=== PATIENT | female | born 1940 | race Caucasian/White ===

== ENCOUNTER 2017-07-29 16:39 | Emergency (ER) | payer BC ==
--- NOTE | 2017-07-29 16:49 | Emergency Department Record ---
History of Present Illness - General Chief Complaint: Chest Pain Stated Complaint: CHEST PAIN Time Seen by Provider: 07/29/17 16:48 Source: Patient Mode of Arrival: Ambulatory Limitations: No limitations - History of Present Illness Initial Comments: 76 yo female presents to ED for evaluation of "sharp" chest pain that began 3-4 days ago, denies any activity that worsens or improves her symptoms. Patient denies history of heart or lung problems, denies history of DVT, and denies fevers, chills, or recent illness. Patient reports a dull ache associated with her symptoms as well. Patient reports previous stress testing was 3-4 years ago. MD Complaint: Chest pain Onset/Timin -: Days(s) Pain Location: Left chest, Right chest Pain Radiation: Back Severity: Moderate Quality: Sharp Consistency: Intermittent Improves With: Nothing Worsens With: Nothing Treatments Prior to Arrival: None - Related Data On Oral Contraceptives: No Home Medications Medication Instructions Recorded Confirmed Last Taken Alprazolam [Xanax] 0.5 mg PO ASDIR 07/29/17 07/29/17 Unknown Aspirin [Aspir-Low] 81 mg PO DAILY 07/29/17 07/29/17 07/29/17 Atorvastatin Calcium [Lipitor] 10 mg PO QHS 07/29/17 07/29/17 07/28/17 Ibandronate Sodium [Boniva] 150 mg PO MONTHLY 07/29/17 07/29/17 Unknown Losartan Potassium [Cozaar] 50 mg PO DAILY 07/29/17 07/29/17 07/29/17 Pramipexole Di-HCl [Mirapex] 0.125 mg PO QHS 07/29/17 07/29/17 07/28/17 Propranolol HCl 80 mg PO DAILY 07/29/17 07/29/17 07/29/17 Topiramate [Topamax] 100 mg PO BID 07/29/17 07/29/17 07/29/17 Venlafaxine HCl [Venlafaxine HCl 37.5 mg PO QHS 07/29/17 07/29/17 07/28/17 ER] Allergies Allergy/AdvReac Type Severity Reaction Status Date / Time No Known Drug Allergies Allergy Verified 07/29/17 16:51 Review of Systems Constitutional: Denies: Chills, Fever, Malaise, Night sweats Eyes: Denies: Eye discharge, Eye pain ENT: Denies: Congestion, Ear pain, Epistaxis Respiratory: Denies: Cough, Dyspnea Cardiovascular: Reports: Chest pain. Denies: Dyspnea on exertion Endocrine: Denies: Fatigue, Heat or cold intolerance Gastrointestinal: Denies: Abdominal pain, Nausea, Vomiting Genitourinary: Denies: Incontinence, Retention Musculoskeletal: Denies: Arthralgia, Back pain, Gout, Joint swelling Skin: Denies: Bruising, Change in color Neurological: Denies: Abnormal gait, Confusion, Headache, Seizure Psychiatric: Denies: Anxiety Hematological/Lymphatic: Denies: Anemia, Blood Clots Past Medical History - SOCIAL HISTORY Smoking Status: Never smoker - RESPIRATORY Hx Respiratory Disorders: No - CARDIOVASCULAR Hx Cardio Disorders: Yes Hx Hypertension: Yes - NEURO Hx Neuro Disorders: Yes Hx Headaches: Yes - GI Hx GI Disorders: No - Hx Genitourinary Disorders: No - ENDOCRINE Hx Endocrine Disorders: No - MUSCULOSKELETAL Hx Musculoskeletal Disorders: Yes Hx Arthritis: Yes (hands) - PSYCH Hx Psych Problems: No - HEMATOLOGY/ONCOLOGY Hx Hematology/Oncology Disorders: Yes Hx Cancer: Yes (Left Breast) Hx Chemotherapy: Yes Hx Radiation Therapy: No Family Medical History Hx Cancer: Brother/Sister Physical Exam - General General Appearance: Alert, Oriented x3, Cooperative, No acute distress Limitations: No limitations - Head Head exam: Atraumatic, Normocephalic, Normal inspection Head exam detail: negative: Abrasion, Contusion, Sloan's sign, General tenderness, Hematoma, Laceration - Eye Eye exam: Normal appearance. negative: Conjunctival injection, Periorbital swelling, Periorbital tenderness, Scleral icterus - ENT Ear exam: negative: Auricular hematoma, Auricular trauma Nasal Exam: negative: Active bleeding, Discharge, Dried blood, Foreign body Mouth exam: negative: Drooling, Laceration, Tongue elevation - Neck Neck exam: Normal inspection. negative: Meningismus, Tenderness - Respiratory Respiratory exam: Normal lung sounds bilaterally. negative: Rales, Respiratory distress, Rhonchi, Stridor - Cardiovascular Cardiovascular Exam: Regular rate, Normal rhythm, Normal heart sounds - GI/Abdominal GI/Abdominal exam: Soft. negative: Rebound, Rigid, Tenderness - Rectal Rectal exam: Deferred - exam: Deferred - Extremities Extremities exam: Normal inspection. negative: Calf tenderness, Pedal edema, Tenderness - Back Back exam: Denies: CVA tenderness (R), CVA tenderness (L) - Neurological Neurological exam: Alert, Normal gait, Oriented X3 - Psychiatric Psychiatric exam: Normal affect, Normal mood - Skin Skin exam: Normal color. negative: Abrasion Type of lesion: negative: abrasion Course - Reevaluation(s) Reevaluation #1: 07/29/17 16:48 EKG: NSR 59 Normal axis, normal intervals No acute ST-T wave changes No significant change from 02/26/15 Reevaluation #2: 07/29/17 18:34 CXR: Chronic changes, hyperinflation, nothing acute Labs reviewed and are grossly unremarkable for an acute process. Case was discussed with Dr. Briseno, will accept transfer at this time. Patient was updated on all results, and appears stable for transfer at this time. Medical Decision Making - Lab Data Result diagrams: 07/29/17 16:50 07/29/17 16:50 Disposition Disposition: Transfer Clinical Impression: Chest pain Qualifiers: Chest pain type: unspecified Qualified Code(s): R07.9 - Chest pain, unspecified Disposition: Acute Care Hospital Transfer Transfer To: [facility] Reason For Transfer: Cardiac evaluation Accepting Physician: Finn Time Discussed w/Accepting Physician: 18:38 Condition: (2) Stable Forms: Patient Portal Access Time of Disposition: 18:38 Quality - Quality Measures Quality Measures: N/A - Blood Pressure Screening Does Patient Have Any of the Following: Active Dx of HTN Blood Pressure Classification: Hypertensive Reading Systolic Measurement: 174 Diastolic Measurement: 75 Screening for High Blood Pressure: Patient Exclusion, Hx of HTN [G9744]
[2017-07-29] MEDS ORDERED: ASPIRIN 81 MG CHEWABLE TABLET PO ONE (16:57)
[2017-07-29 17:10] LABS: BASO % 0.2 % (0-6); EOS % 2.1 % (0-6); GRAN % 47.3 % (47-80); HEMATOCRIT 36.9 % (35.0-47.0); HEMOGLOBIN 11.6 gm/dl (11.6-16.0); MEAN CELL VOLUME 97.4 fl (81-97); MEAN CORPUSCULAR HEMOGLOBIN 30.6 pg (27-33); MEAN CORPUSCULAR HGB CONC 31.4 g/dl (32-36); MEAN PLATELET VOLUME 9.9 fl (7.4-10.4); MONO % 10.4 % (0-9); PLATELET COUNT 247 K/uL (130-400); RED BLOOD COUNT 3.79 M/uL (3.80-5.40); RED CELL DISTRIBUTION WIDTH 13.7 % (11.5-14.5); WHITE BLOOD COUNT W/O DIFF 6.5 K/uL (4.2-12.2)
[2017-07-29 17:24] LABS: BLOOD UREA NITROGEN 23 mg/dL (8-23)
[2017-07-29 17:25] LABS: CREATININE 0.8 mg/dL (0.5-0.9); EST GLOMERULAR FILTRATION RATE > 60 mL/min; TOTAL PROTEIN 7.6 g/dL (6.6-8.7)
[2017-07-29 17:27] LABS: GLUCOSE,RANDOM 102 mg/dL (74-109)
[2017-07-29 17:30] LABS: ALB/GLOB RATIO 1.5 (1.1-1.8); ALBUMIN 4.5 g/dL (4.0-5.0); ALKALINE PHOSPHATASE 74 U/L (35-104); ALT/SGPT 22 U/L (<33); AST/SGOT 22 U/L (10.0-35.0)
--- NOTE | 2017-07-30 00:59 | RADIOLOGY REPORT ---
EXAM: CHEST 2 VIEWS HISTORY: CHEST PAIN FOR PAST FOUR DAYS ORIGINATING IN STERNAL AREA AND MIGRATING BOTH TO THE RIGHT AND THE LEFT. TECHNIQUE: Upright PA and lateral views of the chest. COMPARISON: Two-view chest radiographic examination dated 02/26/15. FINDINGS: The heart is not enlarged and the pulmonary vasculature is nondilated. The lungs and pleural spaces are clear. There are degenerative changes scattered within the visualized spine. IMPRESSION: 1. NO EVIDENCE OF ACUTE CARDIOPULMONARY DISEASE. HYPERINFLATION OF THE LUNGS CONSISTENT WITH COPD. 2. DEGENERATIVE CHANGES OF THE THORACIC SPINE ASSOCIATED WITH MILD THORACOLUMBAR SCOLIOSIS. JOB NUMBER: [id number] MTDD
== END 2017-07-29 19:36 | disposition short-term general hospital (02) ==
LOC: ER 16:39
DX: R07.9 Chest pain, unspecified (principal); I10 Essential (primary) hypertension
CPT/HCPCS: 71020; 80053; 84484; 85025; 85379; 93005; 93010; 99285

== ENCOUNTER 2019-04-14 16:00 | Emergency (ER) | payer MEDICARE ==
[2019-04-14] MEDS ORDERED: ACETAMINOPHEN 1,000 MG/100 ML BTL IVPB ONE (16:19)
--- NOTE | 2019-04-14 16:23 | Emergency Department Record ---
History of Present Illness - General Chief Complaint: Neck Injury/Pain Stated Complaint: PAIN ON LT SIDE OF NECK Time Seen by Provider: 04/14/19 16:12 Source: Patient Mode of Arrival: Ambulatory Limitations: No limitations - History of Present Illness Initial Comments: The patient is here due to L posterior neck pain over the last 2 days. She denies any injury or trauma. The patient is worse with any head movement or rotation. The patient does have a hx of similar pain but this episode is worse. She has been taking Ibuprofen for pain with little relief. The patient denies any arm or leg numbness, weakness, or tingling and she has had no difficulty swallowing or talking. She also denies any CP, SOB, rash, sweating, GUERRERO, nausea, visual changes or balance issues. MD Complaint: Neck pain Onset/Timin -: Days(s) Quality: Aching Consistency: Constant Associated Symptoms: Other Treatments Prior to Arrival: Ibuprofen - Related Data Home Medications Medication Instructions Recorded Confirmed Last Taken Diphenoxylate HCl/Atropine 1 tab PO ASDIR 04/14/19 04/14/19 04/14/19 [Diphenoxylate-Atrop 2.5-0.025] Sulfasalazine [Azulfidine] 500 mg PO BID 04/14/19 04/14/19 04/14/19 Allergies Allergy/AdvReac Type Severity Reaction Status Date / Time No Known Drug Allergies Allergy Verified 04/14/19 16:13 Travel Screening - Travel/Exposure Within Last 30 Days Have you traveled within the last 30 days?: No - Travel/Exposure Within Last Year Have you traveled outside the [place] in the last year?: No - Additonal Travel Details Have you been exposed to anyone with a communicable illness?: No - Travel Symptoms Symptom Screening: None Review of Systems Constitutional: Denies: Chills, Fever Eyes: Denies: Eye discharge ENT: Denies: Congestion Respiratory: Denies: Cough, Dyspnea Past Medical History - SOCIAL HISTORY Smoking Status: Never smoker Alcohol Use: Occasional Drug Use: None - RESPIRATORY Hx Respiratory Disorders: No - CARDIOVASCULAR Hx Cardio Disorders: Yes Hx Hypertension: Yes - NEURO Hx Neuro Disorders: Yes Hx Headaches: Yes - GI Hx GI Disorders: No - Hx Genitourinary Disorders: No - ENDOCRINE Hx Endocrine Disorders: No - MUSCULOSKELETAL Hx Musculoskeletal Disorders: Yes Hx Arthritis: Yes (hands) - PSYCH Hx Psych Problems: No - HEMATOLOGY/ONCOLOGY Hx Hematology/Oncology Disorders: Yes Hx Cancer: Yes (Left Breast) Hx Chemotherapy: Yes Hx Radiation Therapy: No Family Medical History Any Significant Family History?: No Hx Cancer: Brother/Sister Physical Exam - General General Appearance: Alert, Oriented x3, Cooperative, No acute distress - Head Head exam: Atraumatic, Normocephalic Image of Face/Head: 1 - Area of pain and tenderness. The pain is much worse with any head movement or rotation. - Eye Eye exam: Normal appearance, PERRL - ENT Throat exam: Normal inspection. negative: Tonsillar erythema, Tonsillar exudate - Neck Neck exam: Normal inspection, Full ROM (Any ROM of the neck does reproduce the patient's pain.), Tenderness (There is reproducible tenderness to the L posterior cervical muscles.). negative: Lymphadenopathy, Meningismus, Thyromegaly - Respiratory Respiratory exam: Normal lung sounds bilaterally. negative: Respiratory distress - Cardiovascular Cardiovascular Exam: Regular rate, Normal rhythm, Normal heart sounds - GI/Abdominal GI/Abdominal exam: Soft, Normal bowel sounds. negative: Tenderness - Extremities Extremities exam: Normal inspection, Full ROM, Normal capillary refill. negative: Tenderness - Back Back exam: Reports: Normal inspection. Denies: Vertebral tenderness - Neurological Neurological exam: Alert, Normal gait, Oriented X3, Reflexes normal. negative: Abnormal gait, Altered, Motor sensory deficit - Psychiatric Psychiatric exam: negative: Anxious - Skin Skin exam: negative: Rash Course Vital Signs 04/14/19 16:06 Temperature 97.7 F Pulse Rate [ 64 [employer] ] Respiratory 18 Rate Blood Pressure 169/67 [Right Arm] Pulse Ox 98 - Reevaluation(s) Reevaluation #1: The patient is doing a lot better at this time. Her pain is resolving. 04/14/19 17:04 Reevaluation #2: The patient is doing a lot better at this time. Her pain is 90% gone at this time and she is resting comfortably. I did explain to her that her glucose is mildly elevated and her HGB slightly low. She is to use Tylenol and Ibuprofen for pain and to see her PCP next week for recheck. I also instructed her to return if any rash develops. 04/14/19 17:16 Medical Decision Making - Data Complexity MDM Data: Labs Ordered and/or Reviewed, X-Ray Ordered and/or Reviewed - Lab Data Result diagrams: 04/14/19 16:28 04/14/19 16:28 - Radiology Data Radiology results: Report reviewed (Cervical Spine: neg for acute process. DJD.) Disposition Disposition: Discharge Clinical Impression: Neck pain on left side Disposition: Home, Self-Care Condition: (2) Stable Instructions: Cervical Sprain (ED) Additional Instructions: Please alternate Tylenol with Ibuprofen every 4 hours and see your family doctor for recheck next week. Please return to the ER for any worsening symptoms. Forms: Patient Portal Access Time of Disposition: 17:19 Quality - Quality Measures Quality Measures: N/A - Blood Pressure Screening View Details: Yes Does Patient Have Any of the Following: No Blood Pressure Classification: Hypertensive Reading Systolic Measurement: 169 Diastolic Measurement: 67 Screening for High Blood Pressure: < First Hypertensive BP, F/U Documented > [G8950] First Hypertensive Follow-up Interventions: Referral to alternative/primary care provider.
[2019-04-14 16:35] LABS: ABSOLUTE NEUTROPHIL COUNT 3.58; BASO % 0.2 % (0-6); EOS % 1.7 % (0-6); GRAN % 56.9 % (47-80); HEMATOCRIT 35.4 % (35.0-47.0); HEMOGLOBIN 10.8 gm/dl (11.6-16.0); LYMPH % 30.4 % (16-45); MEAN CELL VOLUME 99.4 fl (81-97); MEAN CORPUSCULAR HEMOGLOBIN 30.3 pg (27-33); MEAN CORPUSCULAR HGB CONC 30.5 g/dl (32-36); MEAN PLATELET VOLUME 10.2 fl (7.4-10.4); MONO % 10.8 % (0-9); PLATELET COUNT 237 K/uL (130-400); RED BLOOD COUNT 3.56 M/uL (3.80-5.40); RED CELL DISTRIBUTION WIDTH 13.4 % (11.5-14.5); WHITE BLOOD COUNT W/O DIFF 6.3 K/uL (4.2-12.2)
[2019-04-14 16:47] LABS: BLOOD UREA NITROGEN 18 mg/dL (8-23); CREATININE 0.7 mg/dL (0.5-0.9); EST GLOMERULAR FILTRATION RATE > 60 mL/min
[2019-04-14 16:48] LABS: TOTAL PROTEIN 7.1 g/dL (6.6-8.7)
[2019-04-14 16:50] LABS: GLUCOSE,RANDOM 171 mg/dL (74-109)
[2019-04-14 16:52] LABS: ALB/GLOB RATIO 1.6 (1.1-1.8); ALBUMIN 4.4 g/dL (4.0-5.0); ALKALINE PHOSPHATASE 96 U/L (35-104); ALT/SGPT 22 U/L (<33); AST/SGOT 28 U/L (10.0-35.0)
[2019-04-14 16:53] LABS: C-REACTIVE PROTEIN 0.34 mg/dL (<0.5)
--- NOTE | 2019-04-16 16:49 | RADIOLOGY REPORT ---
EXAM: CERVICAL SPINE Minimum 4 Views HISTORY: PATIENT HAS LEFT NECK PAIN FOR THE PAST TWO DAYS. TECHNIQUE: Multiple views of the cervical spine are provided without comparison examinations. FINDINGS: Osteopenia of the osseous structures is noted. The vertebral body height, contour, AP alignment of the cervical spine is within normal limits. Prevertebral soft tissues are unremarkable. There is no radiographic evidence of a fracture or dislocation of the cervical spine. Moderate to advanced disc space height loss with endplate sclerosis and anterior vertebral body osteophyte formation is noted at the C4-C5 disc space level. Facet arthropathy is noted throughout the cervical spine. IMPRESSION: OSTEOPENIA OF THE OSSEOUS STRUCTURES IS NOTED. MULTILEVEL DEGENERATIVE CHANGES OF THE CERVICAL SPINE ARE NOTED WITHOUT RADIOGRAPHIC EVIDENCE OF AN ACUTE PROCESS INVOLVING THE CERVICAL SPINE. JOB NUMBER: [id number] [facility]
== END 2019-04-14 17:29 | disposition home or self-care (01) ==
LOC: ER 16:00
DX: M54.2 Cervicalgia (principal); R73.09 Other abnormal glucose; I10 Essential (primary) hypertension
CPT/HCPCS: 72050; 80053; 85025; 86140; 96374; 99284